=== PATIENT | male | born 1935 | race American Indian/Alaskan Native ===

== ENCOUNTER 2017-03-18 08:28 | Inpatient (IN) | payer MEDICARE ==
[2017-03-18] MEDS ORDERED: ZOFRAN IV PRN (09:51)
[2017-03-18] MEDS ORDERED: DULCOLAX PR PRN (09:51)
[2017-03-18] MEDS ORDERED: MILK OF MAGNESIA PO PRN (09:51)
[2017-03-18] MEDS ORDERED: TYLENOL PO PRN (09:51)
[2017-03-18] MEDS ORDERED: LOVENOX SUB-Q SCH (10:00)
--- NOTE | 2017-03-18 10:15 | History and Physical Report ---
History of Present Illness Date of examination: 03/18/17 History of present illness: Obtained from the office Medications and Allergies Allergies Allergy/AdvReac Type Severity Reaction Status Date / Time No Known Allergies Allergy Verified 03/18/17 09:59 Home Medications Medication Instructions Recorded Confirmed Last Taken Type Aspirin EC [Aspirin Enteric Coated 81 mg PO QDAY 03/18/17 03/18/17 Unknown History TAB] Clopidogrel [Plavix] 75 mg PO QDAY 03/18/17 03/18/17 Unknown History Doxazosin 8 mg PO QDAY 03/18/17 03/18/17 Unknown History Finasteride [Proscar] 5 mg PO QDAY 03/18/17 03/18/17 Unknown History Labetalol HCl 300 mg PO BID 03/18/17 03/18/17 Unknown History Levothyroxine [Synthroid] 75 mcg PO QAM 03/18/17 03/18/17 Unknown History Pantoprazole [Protonix] 40 mg PO QDAY 03/18/17 03/18/17 Unknown History Tamsulosin [Flomax] 0.4 mg PO QDAY 03/18/17 03/18/17 Unknown History methOCARBAMOL [Robaxin TAB] 500 mg PO BID 03/18/17 03/18/17 Unknown History predniSONE [Deltasone] 20 mg PO BID 03/18/17 03/18/17 Unknown History traMADol [Ultram] 50 mg PO Q6HR PRN 03/18/17 03/18/17 Unknown History Active Meds: Active Medications Acetaminophen (Tylenol) 650 mg PO Q4H PRN PRN Reason: Pain MILD(1-3)/Fever >100.5/WASHBURN Bisacodyl (Dulcolax) 10 mg [place] QDAY PRN PRN Reason: Constipation unrelieved by [facility] Enoxaparin Sodium (Lovenox) 30 mg SUB-Q QDAY NINO Sodium Chloride (Nacl 0.9% 1000 Ml) 1,000 mls @ 75 mls/hr IV DIRECT NINO Magnesium Hydroxide (Milk Of Magnesia) 30 ml PO Q4H PRN PRN Reason: Constipation Ondansetron HCl (Zofran) 4 mg IV Q8H PRN PRN Reason: N/V unrelieved by Reglan Results 03/18/17 12:33 03/18/17 12:33 Assessment and Plan Progressive SOB Angina Hypertension Chronic Kidney disease Hypothyroidism Plan: Labs, CXR R/L heart catherization for further evaluation of progressive symptoms. Patient at high risk for contrast induced nephropathy and agrees to proceed. We will initiate IV hydration with NS at 75/hr. Nephrology evaluation. Pulmonary consultation for shortness of breath.
--- NOTE | 2017-03-18 13:15 | Consultation ---
History of Present Illness - Reason for Consult Consult date: 03/18/17 chronic renal failure - History of Present Illness The patient is a 81 YO AAM with medical history significant for Obesity, HTN, Hypothyroid, BPH, Chronic back pain, chronic SOB and CKD stage 3 who was admitted for right and left heart cath to evaluate his SOB. Per patient his shortness of breath is gradually getting worse. Associated symptoms include wheezing and leg swelling. He is known to have CKD stage [address]Bob Cruz. His creatinine was 1.6 on 02/25/2017 done at [facility]. Today his creatinine is 1.3. Patient denies any CP, hemoptysis, fever, chills, dizziness, diaphoresis, syncope, dysuria or hematuria. Past History Past Medical History: hypertension, hyperlipidemia, hypothyroidism, renal failure Medications and Allergies Allergies Allergy/AdvReac Type Severity Reaction Status Date / Time No Known Allergies Allergy Verified 03/18/17 09:59 Home Medications Medication Instructions Recorded Confirmed Last Taken Type Aspirin EC [Aspirin Enteric Coated 81 mg PO QDAY 03/18/17 03/18/17 Unknown History TAB] Clopidogrel [Plavix] 75 mg PO QDAY 03/18/17 03/18/17 Unknown History Doxazosin 8 mg PO QDAY 03/18/17 03/18/17 Unknown History Finasteride [Proscar] 5 mg PO QDAY 03/18/17 03/18/17 Unknown History Labetalol HCl 300 mg PO BID 03/18/17 03/18/17 Unknown History Levothyroxine [Synthroid] 75 mcg PO QAM 03/18/17 03/18/17 Unknown History Pantoprazole [Protonix] 40 mg PO QDAY 03/18/17 03/18/17 Unknown History Tamsulosin [Flomax] 0.4 mg PO QDAY 03/18/17 03/18/17 Unknown History methOCARBAMOL [Robaxin TAB] 500 mg PO BID 03/18/17 03/18/17 Unknown History predniSONE [Deltasone] 20 mg PO BID 03/18/17 03/18/17 Unknown History traMADol [Ultram] 50 mg PO Q6HR PRN 03/18/17 03/18/17 Unknown History Active Meds: Active Medications Acetaminophen (Tylenol) 650 mg PO Q4H PRN PRN Reason: Pain MILD(1-3)/Fever >100.5/[place]BURN Aspirin (Halfprin Ec) 81 mg PO QDAY [facility] Bisacodyl (Dulcolax) 10 mg [place] QDAY PRN PRN Reason: Constipation unrelieved by MOM Clopidogrel Bisulfate (Plavix) 75 mg PO QDAY [facility] Enoxaparin Sodium (Lovenox) 30 mg SUB-Q QDAY [facility] Finasteride (Proscar) 5 mg PO QDAY [facility] Sodium Chloride (Nacl 0.9% 1000 Ml) 1,000 mls @ 75 mls/hr IV DIRECT NINO Levothyroxine Sodium (Synthroid) 75 mcg PO QAM [facility] Magnesium Hydroxide (Milk Of Magnesia) 30 ml PO Q4H PRN PRN Reason: Constipation Miscellaneous Medication (Doxazosin) 8 mg PO QDAY [facility] Miscellaneous Medication (Labetalol Hcl [Labetalol Hcl]) 300 mg PO BID [facility] Ondansetron HCl (Zofran) 4 mg IV Q8H PRN PRN Reason: N/V unrelieved by Reglan Pantoprazole Sodium (Protonix) 40 mg PO QDAY [facility] Prednisone (Deltasone) 20 mg PO BID [facility] Tamsulosin HCl (Flomax) 0.4 mg PO QDAY [facility] Tramadol HCl (Ultram) 50 mg PO Q6HR PRN PRN Reason: Pain Review of Systems Constitutional: no weight loss, no weight gain, no fever, no chills, no anorexia , no weakness, no poor appetite Ears, nose, mouth and throat: no epistaxis Cardiovascular: orthopnea, edema, shortness of breath, dyspnea on exertion, high blood pressure, leg edema, decreased exercise tolerance, no chest pain, no palpitations, no rapid/irregular heart beat, no syncope, no lightheadedness Respiratory: cough, shortness of breath, dyspnea on exertion, snoring, no cough with sputum, no excessive sputum, no hemoptysis, no home oxygen Gastrointestinal: no abdominal pain, no nausea, no vomiting, no diarrhea, no hematemesis, no BRBPR, no melena, no jaundice Genitourinary Male: no dysuria, no hematuria Rectal: no bleeding Musculoskeletal: no redness of joints, no hot joints Integumentary: no rash, no wounds, no jaundice Neurological: no paralysis, no weakness, no syncope, no convulsions, no change in speech, no confusion Psychiatric: no disorientation, no confusion Endocrine: no weight change Hematologic/Lymphatic: no easy bleeding Allergic/Immunologic: wheezing Exam - General Appearance General appearance: well-developed, well-nourished, appears stated age, obese, other (audible wheezing) EENT: ATNC, PERRL, mucous membranes moist, hearing intact, vision intact Neck: Present: neck supple, trachea midline Respiratory: Wheezes Heart: regular, S1S2, no murmurs Gastrointestinal: Present: normoactive bowel sounds, obese. Absent: tenderness , distended Integumentary: no rash, warm and dry Neurologic: no focal deficit, no asterixis, alert and oriented x3 Musculoskeletal: Present: other (1+ edema of both LEs noted) Psychiatric: mood/affect appropriate, cooperative Results - Lab Results 03/18/17 12:33 03/18/17 12:33 Assessment and Plan 1. CKD stage 3: Renal function is stable. Discussed with patient about the potential risks of IV contrast. He agreed to proceed with Cardiac cath. Will start on bicarbonate drip and Mucomyst. Monitor renal function. 2. Hypertension: Continue home meds. 3. Shortness of breath: Cardiac cath tomorrow. Will follow.
[2017-03-18 13:26] LABS: Basophils # (Auto) 0.1 K/mm3 (0.0-0.1); Basophils % (Auto) 0.7 % (0.0-1.8); Eosinophils # (Auto) 0.2 K/mm3 (0.0-0.4); Eosinophils % (Auto) 1.4 % (0.0-4.3); Hematocrit 34.7 % (35.5-45.6); Hemoglobin 11.2 gm/dl (11.8-15.2); Lymphocytes # (Auto) 1.6 K/mm3 (1.2-5.4); Lymphocytes % (Auto) 13.8 % (13.4-35.0); Mean Corpuscular HGB Conc 32 % (32-34); Mean Corpuscular Hemoglobin 28 pg (28-32); Mean Corpuscular Volume 88 fl (84-94); Monocytes # (Auto) 0.8 K/mm3 (0.0-0.8); Monocytes % (Auto) 7.3 % (0.0-7.3); Platelet Count 136 K/mm3 (140-440); Red Blood Count 3.95 M/mm3 (3.65-5.03); Red Cell Distribution Width 16.3 % (13.2-15.2)
[2017-03-18 13:36] LABS: INR 1.02 (0.87-1.13)
[2017-03-18 13:38] LABS: BUN/Creatinine Ratio 15; Blood Urea Nitrogen 20 mg/dL (9-20); Calcium 9.3 mg/dL (8.4-10.2); Hemolysis Index 11
[2017-03-18] MEDS: ULTRAM PO PRN (15:22)
[2017-03-18] MEDS: PROVENTIL IH PRN ×2 (16:26→22:28)
--- NOTE | 2017-03-18 16:30 | Consultation ---
History of Present Illness Consult date: 03/18/17 Requesting physician: TONY CHANCE Reason for consult: dyspnea Past History Past Medical History: hypertension, hyperlipidemia, hypothyroidism, renal failure Medications and Allergies Allergies Allergy/AdvReac Type Severity Reaction Status Date / Time No Known Allergies Allergy Verified 03/18/17 09:59 Home Medications Medication Instructions Recorded Confirmed Last Taken Type Aspirin EC [Aspirin Enteric Coated 81 mg PO QDAY 03/18/17 03/18/17 Unknown History TAB] Clopidogrel [Plavix] 75 mg PO QDAY 03/18/17 03/18/17 Unknown History Doxazosin 8 mg PO QDAY 03/18/17 03/18/17 Unknown History Finasteride [Proscar] 5 mg PO QDAY 03/18/17 03/18/17 Unknown History Labetalol HCl 300 mg PO BID 03/18/17 03/18/17 Unknown History Levothyroxine [Synthroid] 75 mcg PO QAM 03/18/17 03/18/17 Unknown History Pantoprazole [Protonix] 40 mg PO QDAY 03/18/17 03/18/17 Unknown History Tamsulosin [Flomax] 0.4 mg PO QDAY 03/18/17 03/18/17 Unknown History methOCARBAMOL [Robaxin TAB] 500 mg PO BID 03/18/17 03/18/17 Unknown History predniSONE [Deltasone] 20 mg PO BID 03/18/17 03/18/17 Unknown History traMADol [Ultram] 50 mg PO Q6HR PRN 03/18/17 03/18/17 Unknown History Active Meds: Active Medications Acetaminophen (Tylenol) 650 mg PO Q4H PRN PRN Reason: Pain MILD(1-3)/Fever >100.5/[place]URN Acetylcysteine (Mucomyst Oral) 600 mg PO Q12HR NINO Stop: 03/20/17 22:01 Albuterol (Proventil) 2.5 mg I[place] Q4HRT PRN PRN Reason: Shortness Of Breath Last Admin: 03/18/17 16:26 Dose: 2.5 mg Aspirin (Halfprin Ec) 81 mg PO QDAY [facility] Bisacodyl (Dulcolax) 10 mg [place] QDAY PRN PRN Reason: Constipation unrelieved by MOM Clopidogrel Bisulfate (Plavix) 75 mg PO QDAY [facility] Doxazosin Mesylate (Cardura) 8 mg PO QDAY [facility] Enoxaparin Sodium (Lovenox) 30 mg SUB-Q QDAY [facility] Finasteride (Proscar) 5 mg PO QDAY [facility] Sodium Chloride (Nacl 0.9% 1000 Ml) 1,000 mls @ 75 mls/hr IV DIRECT [facility] Sodium Bicarbonate 100 meq/ (Sterile Water) 1,100 mls @ 60 mls/hr IV DIRECT NINO Labetalol HCl (Normodyne) 300 mg PO BID [facility] Levothyroxine Sodium (Synthroid) 75 mcg PO QAM@0600 [facility] Magnesium Hydroxide (Milk Of Magnesia) 30 ml PO Q4H PRN PRN Reason: Constipation Ondansetron HCl (Zofran) 4 mg IV Q8H PRN PRN Reason: N/V unrelieved by Reglan Pantoprazole Sodium (Protonix) 40 mg PO QDAY [facility] Prednisone (Deltasone) 20 mg PO BID [facility] Tamsulosin HCl (Flomax) 0.4 mg PO QDAY [facility] Tramadol HCl (Ultram) 50 mg PO Q6HR PRN PRN Reason: Pain Last Admin: 03/18/17 15:22 Dose: 50 mg Physical Examination Vital signs: Vital Signs Temp Pulse Resp BP Pulse Ox 98.4 F 71 16 154/86 94 03/18/17 12:25 03/18/17 12:25 03/18/17 12:25 03/18/17 12:25 03/18/17 12:25 Results - Laboratory Findings CBC and BMP: 03/18/17 12:33 03/18/17 12:33 PT/INR, D-dimer PT 13.9 Sec. (12.2-14.9) 03/18/17 12:33 INR 1.02 (0.87-1.13) 03/18/17 12:33 Abnormal lab findings: Abnormal Labs 03/18/17 03/18/17 12:33 12:33 WBC 11.2 H Hgb 11.2 L Hct 34.7 L RDW 16.3 H Plt Count 136 L Seg Neutrophils % 76.8 H Seg Neutrophils # 8.6 H Glucose 107 H Assessment and Plan 81 y/o male with known CKD and apparent exposure to asbestos, admitted for left and right heart cath 1. Most likely has an element of pulmonary hypertension given renal disease so agree with right heart cath to evaluate for this 2. CXR does not appear to be classic for asbestos exposure but have ordered a CT noncontrast and asked for 2-3 mm cuts (High resolution) to look for evidence of interstitial lung disease 3. Will follow up after CT and cath done for further recommendations.
[2017-03-18] MEDS: NACL 0.9% 1000 ML 1,000 ML IV SCH (17:08)
--- NOTE | 2017-03-18 20:46 | Cat Scan Report ---
FINAL REPORT PROCEDURE: CT CHEST WO CON TECHNIQUE: Computerized axial tomography of the chest was performed without contrast material. This study is performed without intravenous contrast and the sensitivity for pathology, including neoplasms, adenopathy, abscess, pulmonary embolism and aortic dissection, is reduced. HISTORY: Dyspnea with prior asbestos exposure COMPARISON: No prior studies are available for comparison. TECHNICAL QUALITY: Satisfactory. FINDINGS: Heart and pericardium: No pericardial effusion or thickening. Thoracic aorta: There is atherosclerotic calcification of the aorta. Pulmonary vasculature: Normal caliber. Lymph nodes: No enlarged thoracic lymph nodes. Lungs: There is mild bibasilar atelectasis. Pleural space: There are small layering bilateral pleural effusions. No pleural calcifications are seen. Musculoskeletal structures: There are thoracic spine degenerative disc changes present. Upper abdominal structures: No significant abnormality. IMPRESSION: There are small layering bilateral pleural effusions present. No pulmonary infiltrates are seen.
[2017-03-18] MEDS ORDERED: NORMODYNE PO SCH (22:00)
[2017-03-18] MEDS ORDERED: NON-FORMULARY (Labetalol Hcl [Labetalol Hcl] 300 MG) PO SCH (22:00)
[2017-03-18] MEDS ORDERED: MUCOMYST ORAL PO SCH (22:00)
[2017-03-18] MEDS ORDERED: DELTASONE PO SCH (22:00)
--- NOTE | 2017-03-18 23:23 | XRay Report ---
FINAL REPORT PROCEDURE: XR CHEST 1V AP TECHNIQUE: Chest radiograph anteroposterior view. CPT 99195 HISTORY: SOB COMPARISON: No prior studies are available for comparison. FINDINGS: Heart: The heart is enlarged. Mediastinum/Vessels: Normal. Lungs/Pleural space: There are no infiltrates, effusions or pneumothoraces. Bony thorax: No acute osseous abnormality. Life support devices: None. IMPRESSION: No acute cardiopulmonary abnormality.
[2017-03-19] MEDS ORDERED: SODIUM BICARBONATE 100 MEQ in STERILE WATER 1,000 ML IV SCH (00:01)
[2017-03-19] MEDS: ULTRAM PO PRN (01:21)
[2017-03-19 05:33] LABS: BUN/Creatinine Ratio 15; Blood Urea Nitrogen 20 mg/dL (9-20); Calcium 8.5 mg/dL (8.4-10.2); Hemolysis Index 33
[2017-03-19] MEDS ORDERED: SYNTHROID PO SCH (06:00)
[2017-03-19] MEDS: DUONEB *Not for PRN Use IH SCH ×2 (09:27→14:45)
[2017-03-19] MEDS ORDERED: HALFPRIN EC PO SCH (10:00)
[2017-03-19] MEDS ORDERED: PLAVIX PO SCH (10:00)
[2017-03-19] MEDS ORDERED: PROSCAR PO SCH (10:00)
[2017-03-19] MEDS ORDERED: FLOMAX PO SCH (10:00)
[2017-03-19] MEDS ORDERED: DOXAZOSIN 8 MG PO SCH (10:00)
[2017-03-19] MEDS ORDERED: CARDURA PO SCH (10:00)
[2017-03-19] MEDS ORDERED: PROTONIX PO SCH (10:00)
--- NOTE | 2017-03-19 10:08 | Progress Note ---
Assessment and Plan 1. CKD stage 3: Renal function is stable. Patient is scheduled to get Cardiac cath today. Continue bicarbonate drip and Mucomyst. Monitor renal function. 2. Hypertension: BP controlled. 3. Shortness of breath: Cardiac cath today. Also seen by Pulmonary. Will follow. Subjective Date of service: 03/19/17 Interval history: Patient feeling better. Objective - Vital Signs Vital signs: Vital Signs - 12hr 03/18/17 03/18/17 03/18/17 22:23 22:28 22:43 Temperature Pulse Rate 74 Pulse Rate [ 75 78 Anterior Bilateral Throughout] Respiratory Rate Respiratory 18 18 Rate [Anterior Bilateral Throughout] Blood Pressure Blood Pressure [Right] O2 Sat by Pulse 99 Oximetry 03/18/17 03/19/17 03/19/17 23:21 00:22 04:32 Temperature 98.7 F 98.6 F Pulse Rate 69 75 Pulse Rate [ Anterior Bilateral Throughout] Respiratory 20 20 Rate Respiratory Rate [Anterior Bilateral Throughout] Blood Pressure 152/84 128/63 Blood Pressure [Right] O2 Sat by Pulse 99 97 99 Oximetry 03/19/17 08:09 Temperature 98.4 F Pulse Rate 73 Pulse Rate [ Anterior Bilateral Throughout] Respiratory 16 Rate Respiratory Rate [Anterior Bilateral Throughout] Blood Pressure Blood Pressure 146/81 [Right] O2 Sat by Pulse 96 Oximetry - General Appearance General appearance: well-developed, well-nourished, appears stated age, other ( no distress) EENT: ATNC, PERRL, mucous membranes moist, hearing intact, vision intact Neck: supple Respiratory: Present: Clear to Ascultation Cardiology: regular, S1S2, no murmurs Gastrointestinal: normoactive bowel sounds, no tenderness, no distended, obese Integumentary: no rash, warm and dry Neurologic: no focal deficit, no asterixis, alert and oriented x3 Musculoskeletal: other (trace pedal edema) Psychiatric: mood/affect appropriate, cooperative - Lab 03/18/17 12:33 03/19/17 04:39 Most recent lab results Calcium 8.5 mg/dL (8.4-10.2) 03/19/17 04:39
[2017-03-19] MEDS ORDERED: HEPARIN 10,000 UNITS/10 ML ONE (11:00)
[2017-03-19] MEDS ORDERED: HEPARIN/NS 5000 UNIT/500ML(CATH LAB) 500 ML IR ONE (11:10)
[2017-03-19] MEDS ORDERED: HEPARIN/NS 5000 UNIT/500ML(CATH LAB) 1,000 ML IR ONE (11:12)
[2017-03-19] MEDS: SUBLIMAZE ONE ×2 (11:31→11:44)
[2017-03-19] MEDS: XYLOCAINE 2% INFILTRATI ONE ×2 (11:31→11:44)
[2017-03-19] MEDS: VERSED ONE ×2 (11:31→11:44)
[2017-03-19] MEDS: NACL 0.9% 500 ML 500 ML ONE ×2 (11:32→11:40)
[2017-03-19] MEDS: HEPARIN/NS 5000 UNIT/500ML(CATH LAB) 0 ML IR ONE ×2 (11:32→11:40)
[2017-03-19] MEDS ORDERED: TRIDIL DRIP 50MG/250ML 50 MG/250 ML BOTTLE ONE (12:05)
[2017-03-19] MEDS ORDERED: LASIX ONE (12:05)
--- NOTE | 2017-03-19 12:33 | Event Note ---
Date: 03/19/17 Cardiac cath showed: 1. Severe biventricular HF. 2. Severe 3 vessel disease. 3. Ischemic CM, EF 20-25%. Recommend transfer to [facility] surgery-Dr Burciaga.
--- NOTE | 2017-03-19 12:53 | Cardiac Catherization Report ---
CARDIAC CATHETERIZATION REPORT REASON FOR PROCEDURE: The patient is an 81-year-old man with chronic kidney disease and hypertension, who presented as an outpatient with progressive low threshold exertional shortness of breath and fatigue. Due to persistent symptoms, he was recommended for right and left heart catheterization. Prior to the cardiac catheterization procedure, he was evaluated by Nephrology. Notably, his creatinine on presentation to the hospital was 1.3. Risks and benefits were discussed with the patient including the elevated risk of contrast nephropathy and he agreed to proceed. PROCEDURE: 1. Right heart catheterization. 2. Left heart catheterization. 3. Selective left and right coronary angiography. 4. Left ventricle angiography. PROCEDURE: The patient was prepped and draped in a sterile fashion after informed consent. The right femoral artery and vein were entered using the Seldinger technique. A 6-Finnish sheath was placed in the artery and an 8-Finnish sheath in the vein. A Banks-Jerome catheter was used for right heart catheterization. A pigtail catheter was advanced to the left ventricle. Simultaneous right and left heart filling pressures were recorded. Cardiac output was measured using the thermodilution method. The Banks-Jerome catheter was then withdrawn, following which left ventricular angiography was performed and subsequently the pigtail catheter withdrawn across the aortic valve and transaortic pressure gradient was recorded. We then performed selective left and right coronary angiography. The catheters and the sheaths were removed, hemostasis achieved using manual compression. The patient was returned to the postprocedure unit in stable condition. There were no complications. FINDINGS: HEMODYNAMICS: The mean right atrial pressure was 30. Right ventricular pressure 75/35. Pulmonary artery pressure was 80/50. The mean pulmonary artery wedge pressure was 50. Left ventricular end-diastolic pressure was 50. Cardiac output was 3.5 liters per minute. Ascending aortic pressure was 178/96. There was no significant pressure gradient on pullback across the aortic valve. CORONARY ANGIOGRAPHY: There were separate ostia of the LAD and circumflex arteries. The LAD contained moderate to severe calcification of its proximal segment. This was associated with a long segment of up to 75% to 80% luminal stenosis of the LAD. Following that, there was complex moderate to severe disease of the mid LAD, involving the origins of several medium sized diagonal branches. The circumflex artery, which as noted above originated separately from the LAD contained a 99% stenosis at its ostium. A large proximal obtuse marginal filled by collaterals from the left anterior descending artery system. Following this, the circumflex then continued, terminating in two large terminal branches. The right coronary artery appeared to be a small caliber, but dominant vessel. This vessel was completely occluded at its ostium. There was minimal to no significant faint collateralization of the distal branches from the left coronary system. The left ventricle was moderately to severely dilated. There was severe left ventricular systolic dysfunction, ejection fraction estimated at 20% to 25%. CONCLUSION: 1. Severe elevation of the right and left heart filling pressures, elevated filling pressures are consistent with severe biventricular failure. 2. Severe pulmonary hypertension with pulmonary artery systolic pressures of 75 to 80 mmHg. 3. Severe 3-vessel coronary artery disease as outlined above. 4. Severe ischemic cardiomyopathy, left ventricular ejection fraction 20% to 25%. RECOMMENDATION: 1. The patient will be placed on maximal heart failure therapy including nitrates and inotropic support. 2. Ultimately, he will benefit from surgical coronary bypass revascularization. JOB# [id number] DONALD/RENEE
[2017-03-19] MEDS ORDERED: MILRINONE-D5W 20 MG/100 ML 20 MG/100 ML BAG IV SCH (14:00)
[2017-03-19] MEDS ORDERED: TRIDIL DRIP 50MG/250ML 50 MG/250 ML BOTTLE IV SCH (14:00)
--- NOTE | 2017-03-19 14:16 | Discharge Summary ---
Providers - Providers Date of Admission: 03/18/17 11:04 Date of discharge: 03/19/17 Attending physician: JOEL CHANCE 03/18/17 09:51 Consult to Physician [CONS] Routine Consulting Provider: RUBY CRUZ Reason For Exam: CKD, known to you Place consult to:: Dr. Cruz Notified:: Kim RN Phone number called:: Was contact made?: Yes If yes, spoke with:: Pat-office Time called:: 12:02 03/18/17 14:37 Consult to Physician [CONS] Routine Consulting Provider: DEVYN DUMAS Reason For Exam: SOB, Wheezing Place consult to:: Dr. Dumas Notified:: Kim NOBLE Was contact made?: Yes If yes, spoke with:: Dr. Dumas Time called:: 16:18 03/19/17 12:35 Consult to Cardiac Rehabilitation [CONS] Routine Reason For Exam: Cardiac Rehab Evaluation Primary care physician: SHIRAZ MCKEON Hospitalization Condition: Fair Hospital course: This is an 81yr old male with a history of chronic kidney disease, hypertension who was admitted with progressive shortness of breath and angina and was recommended for a right and left cardiac catheterization. His initial lab values reports a creatinine of 1.3. Prior to the cardiac cath, he received IV hydration with normal saline. A cardiac cath demonstrated: Severe biventricular HF. Severe 3 vessel disease. Ischemic CM, EF 20-25%. Patient has been placed on aggressive medical management for heart failure and recommend for transfer to [place] for CT surgery evaluation for coronary bypass -Dr Burciaga. Disposition: [id number] ANOTHER TYPE [facility] Core Measure Documentation - Palliative Care Palliative Care/ Comfort Measures: Not Applicable - Core Measures Any of the following diagnoses?: heart failure - Heart Failure Discharge Requirements Beta tiffanie at discharge: Yes Exam - Constitutional Vitals: Temp Pulse Resp BP Pulse Ox 97.9 F 86 14 157/80 97 03/19/17 12:45 03/19/17 13:45 03/19/17 13:45 03/19/17 13:45 03/19/17 13:45 Plan Follow up with: TONY CHANCE MD [Staff Physician] - 7 Days SHIRAZ MCKEON MD [Primary Care Provider] - 7 Days Forms: CardCath PCI D/C Instructions
--- NOTE | 2017-03-19 14:32 | Short Stay Summary ---
Short Stay Documentation Date of service: 03/19/17 - History H&P: obtained from office Past Medical History: hypertension, hyperlipidemia, hypothyroidism, renal failure - Allergies and Medications Current Medications: Allergies No Known Allergies Allergy (Verified 03/18/17 09:59) Home Medications Medication Instructions Recorded Confirmed Last Taken Type Aspirin EC [Aspirin Enteric Coated 81 mg PO QDAY 03/18/17 03/18/17 Unknown History TAB] Clopidogrel [Plavix] 75 mg PO QDAY 03/18/17 03/18/17 Unknown History Doxazosin 8 mg PO QDAY 03/18/17 03/18/17 Unknown History Finasteride [Proscar] 5 mg PO QDAY 03/18/17 03/18/17 Unknown History Labetalol HCl 300 mg PO BID 03/18/17 03/18/17 Unknown History Levothyroxine [Synthroid] 75 mcg PO QAM 03/18/17 03/18/17 Unknown History Naprosyn TAB 500 mg PO BID PRN 03/18/17 03/18/17 Unknown History Pantoprazole [Protonix] 40 mg PO QDAY 03/18/17 03/18/17 Unknown History Tamsulosin [Flomax] 0.4 mg PO QDAY 03/18/17 03/18/17 Unknown History methOCARBAMOL [Robaxin TAB] 500 mg PO BID 03/18/17 03/18/17 Unknown History predniSONE [Deltasone] 20 mg PO BID 03/18/17 03/18/17 Unknown History traMADol [Ultram] 50 mg PO Q6HR PRN 03/18/17 03/18/17 Unknown History Active Medications Acetaminophen (Tylenol) 650 mg PO Q4H PRN PRN Reason: Pain MILD(1-3)/Fever >100.5/[place] Acetylcysteine (Mucomyst Oral) 600 mg PO Q12HR [facility] Stop: 03/20/17 22:01 Last Admin: 03/18/17 21:39 Dose: 600 mg Albuterol (Proventil) 2.5 mg IH Q4HRT PRN PRN Reason: Shortness Of Breath Last Admin: 03/18/17 22:28 Dose: 2.5 mg Albuterol/Ipratropium (Duoneb *Not For Prn Use*) 1 ampul IH TIDRT [facility] Last Admin: 03/19/17 09:27 Dose: 1 ampul Aspirin (Halfprin Ec) 81 mg PO QDAY [facility] Bisacodyl (Dulcolax) 10 mg DE QDAY PRN PRN Reason: Constipation unrelieved by MOM Carvedilol (Coreg) 6.25 mg PO BID [facility] Doxazosin Mesylate (Cardura) 8 mg PO QDAY [facility] Enoxaparin Sodium (Lovenox) 30 mg SUB-Q QDAY [facility] Last Admin: 03/18/17 17:08 Dose: 30 mg Finasteride (Proscar) 5 mg PO QDAY [facility] Sodium Chloride (Nacl 0.9% 1000 Ml) 1,000 mls @ 75 mls/hr IV DIRECT NINO Last Admin: 03/18/17 17:08 Dose: 75 mls/hr Sodium Bicarbonate 100 meq/ (Sterile Water) 1,100 mls @ 60 mls/hr IV DIRECT NINO Last Admin: 03/19/17 01:21 Dose: 60 mls/hr Milrinone Lactate/Dextrose (Milrinone-D5w 20 Mg/100 Ml) 20 mg in 100 mls @ 12.488 mls/hr IV TITR NINO; 0.375 MCG/KG/MIN PRN Reason: Protocol Last Admin: 03/19/17 13:30 Dose: 0.375 mcg/kg/min, 12.488 mls/hr Nitroglycerin/Dextrose (Tridil Drip 50mg/250ml) 50 mg in 250 mls @ 6 mls/hr IV TITR NINO; 20 MCG/MIN PRN Reason: Protocol Labetalol HCl (Normodyne) 300 mg PO BID [facility] Last Admin: 03/18/17 21:19 Dose: 300 mg Levothyroxine Sodium (Synthroid) 75 mcg PO QAM@0600 [facility] Last Admin: 03/19/17 05:06 Dose: Not Given Magnesium Hydroxide (Milk Of Magnesia) 30 ml PO Q4H PRN PRN Reason: Constipation Ondansetron HCl (Zofran) 4 mg IV Q8H PRN PRN Reason: N/V unrelieved by Reglan Pantoprazole Sodium (Protonix) 40 mg PO QDAY [facility] Prednisone (Deltasone) 20 mg PO BID [facility] Last Admin: 03/18/17 21:19 Dose: 20 mg Tamsulosin HCl (Flomax) 0.4 mg PO QDAY [facility] Tramadol HCl (Ultram) 50 mg PO Q6HR PRN PRN Reason: Pain Last Admin: 03/19/17 01:21 Dose: 50 mg - Brief post op/procedure progress note Condition: stable - Hospital course Hospital course: This is an 81yr old male with a history of chronic kidney disease, hypertension who was admitted with progressive shortness of breath and angina and was recommended for a right and left cardiac catheterization. His initial lab values reports a creatinine of 1.3. Prior to the cardiac cath, he received IV hydration with normal saline. A cardiac cath demonstrated: Severe biventricular HF. Severe 3 vessel disease. Ischemic CM, EF 20-25%. Patient has been placed on aggressive medical management for heart failure and recommend for transfer to [place] for CT surgery evaluation for coronary bypass -Dr Burciaga. - Disposition Condition at discharge: Fair Disposition: [id number] ANOTHER [facility] Short Stay Discharge Plan Follow up with: TONY CHANCE MD [Staff Physician] - 7 Days SHIRAZ MCKEON MD [Primary Care Provider] - 7 Days Forms: CardCath PCI D/C Instructions
[2017-03-19] MEDS ORDERED: COREG PO SCH (15:00)
[2017-03-19] MEDS: NACL 0.9% 1000 ML 1,000 ML IV SCH (15:29)
[2017-03-19] MEDS ORDERED: NACL 0.9% 1000 ML 1,000 ML ONE (15:29)
--- NOTE | 2017-03-19 16:12 | Progress Note ---
Assessment and Plan 81 y/o male with known CKD and apparent exposure to asbestos, admitted for left and right heart cath 1. No evidence of ILD 2. No evidence of asbestos related lung exposure 3. Cath shows severe 3 vessel disease and depressed EF. Being transferred [place] Subjective Date of service: 03/19/17 Interval history: CT chest done. No evidence of ILD or evidence of asbestos exposure. Bilateral pleural effusions present Objective Vital Signs - 12hr 03/19/17 03/19/17 03/19/17 04:32 08:09 09:27 Temperature 98.6 F 98.4 F Pulse Rate 75 73 Pulse Rate [ 77 Anterior Bilateral Throughout] Respiratory 20 16 Rate Respiratory 18 Rate [Anterior Bilateral Throughout] Blood Pressure 128/63 Blood Pressure 146/81 [Right] O2 Sat by Pulse 99 96 99 Oximetry 03/19/17 03/19/17 03/19/17 09:37 12:45 13:00 Temperature 97.9 F Pulse Rate 87 86 Pulse Rate [ 80 Anterior Bilateral Throughout] Respiratory 21 12 Rate Respiratory 20 Rate [Anterior Bilateral Throughout] Blood Pressure 159/94 150/85 Blood Pressure [Right] O2 Sat by Pulse 97 97 Oximetry 03/19/17 03/19/17 03/19/17 13:15 13:20 13:25 Temperature Pulse Rate 82 80 89 Pulse Rate [ Anterior Bilateral Throughout] Respiratory 21 23 12 Rate Respiratory Rate [Anterior Bilateral Throughout] Blood Pressure 147/90 151/85 162/101 Blood Pressure [Right] O2 Sat by Pulse 97 97 97 Oximetry 03/19/17 03/19/17 03/19/17 13:45 14:00 14:15 Temperature Pulse Rate 86 92 H 93 H Pulse Rate [ Anterior Bilateral Throughout] Respiratory 14 18 23 Rate Respiratory Rate [Anterior Bilateral Throughout] Blood Pressure 157/80 133/68 155/62 Blood Pressure [Right] O2 Sat by Pulse 97 97 94 Oximetry 03/19/17 03/19/17 03/19/17 14:30 15:00 15:30 Temperature Pulse Rate 89 86 84 Pulse Rate [ Anterior Bilateral Throughout] Respiratory 20 16 20 Rate Respiratory Rate [Anterior Bilateral Throughout] Blood Pressure 153/76 145/67 136/72 Blood Pressure [Right] O2 Sat by Pulse 93 95 95 Oximetry CBC and BMP: 03/18/17 12:33 03/19/17 04:39 ABG, PT/INR, D-dimer: PT/INR, D-dimer PT 13.9 Sec. (12.2-14.9) 03/18/17 12:33 INR 1.02 (0.87-1.13) 03/18/17 12:33 Abnormal lab findings: Abnormal Labs 03/18/17 03/18/17 03/19/17 12:33 12:33 04:39 WBC 11.2 H Hgb 11.2 L Hct 34.7 L RDW 16.3 H Plt Count 136 L Seg Neutrophils % 76.8 H Seg Neutrophils # 8.6 H Glucose 107 H 133 H
[2017-03-19 18:06] VITALS: BP 133/58
== END 2017-03-19 18:30 | disposition short-term general hospital (02) | DRG 287 ==
LOC: UNDOADMIN 08:28 → 4A 08:28
PROVIDERS: ADMIT Internal Medicine Cardiovascular Disease; ATTEND Internal Medicine Cardiovascular Disease
PROC: 4A023N8 Measurement of Cardiac Sampling and Pressure, Bilateral, Percutaneous Approach (ICD-10-PCS; principal; 2017-03-19)
PROC: B2151ZZ Fluoroscopy of Left Heart using Low Osmolar Contrast (ICD-10-PCS; 2017-03-19)
PROC: B2111ZZ Fluoroscopy of Multiple Coronary Arteries using Low Osmolar Contrast (ICD-10-PCS; 2017-03-19)
DX: I50.82 Biventricular heart failure (principal); I25.110 Atherosclerotic heart disease of native coronary artery with unstable angina pectoris; E03.9 Hypothyroidism, unspecified; E66.9 Obesity, unspecified; Z68.38 Body mass index [BMI] 38.0-38.9, adult; I12.9 Hypertensive chronic kidney disease with stage 1 through stage 4 chronic kidney disease, or unspecified chronic kidney disease; G89.29 Other chronic pain; M54.9 Dorsalgia, unspecified; N18.3 Chronic kidney disease, stage 3 (moderate); N40.0 Benign prostatic hyperplasia without lower urinary tract symptoms; E78.5 Hyperlipidemia, unspecified; I25.5 Ischemic cardiomyopathy; Z79.82 Long term (current) use of aspirin; Z79.899 Other long term (current) drug therapy
CPT/HCPCS: 36415; 71045; 71250; 80048; 85025; 85610; 85730; 93005; 93010; 93460; 94640; 94760; 96365; 96366; 96368; C1894; J1644; J1650; J1940; J2250; J2260; J3010; J7030; J7040; J7512; Q9967